=== PATIENT | male | born 1930 | race Two or more races ===

== ENCOUNTER 2017-02-07 16:09 | Inpatient (IN) | payer OTHER ==
[~2017-02-07] VITALS: Ht 185.4 cm; Wt 85.2 kg
[2017-02-07 17:45] LABS: Basophils # (auto) 0 uL; Basophils % (auto) 0.5 % (0.0-2.0); Eosinophils # (auto) 0 uL; Eosinophils % (auto) 0.8 % (0.0-7.0); Hematocrit 28.7 % (41.0-53.0); Hemoglobin 9.6 g/dL (13.5-17.5); Lymphocytes # (auto) 0.7 uL; Mean Corpuscular Hemoglobin 28.4 pg (28.0-32.0); Mean Corpuscular Hgb Conc. 33.3 g/dL (32.0-36.0); Mean Corpuscular Volume 85.5 fL (80.0-100.0); Mean Platelet Volume 8.9 fL (7.4-10.4); Monocytes # (auto) 0.7 uL; Monocytes % (auto) 11.3 % (0.0-12.0); Neutrophils # (auto) 4.6 uL; Neutrophils % (auto) 76.4 % (37.0-80.0); Platelet Count (auto) 239 10^3/uL (140-450); White Blood Cell 6.1 10^3/uL (4.4-10.8)
[2017-02-07] MEDS ORDERED: FUROSEMIDE 40 MG/4 ML VIAL IV ONE (18:00)
[2017-02-07 18:07] LABS: Albumin 3.3 g/dL (3.4-5.0); BUN/Creatinine Ratio 10.1; Bilirubin, Total 0.3 mg/dL (0.2-1.0); Calcium 8.4 mg/dL (8.5-10.1); Magnesium 2.1 mg/dL (1.6-2.6); Total Protein 8.1 g/dL (6.4-8.2)
[2017-02-07 18:53] LABS: B-Type Natriuretic Peptide 345.16 pg/mL (0-100); Temperature: 23.4 C (20.0-25.0)
[2017-02-07] MEDS ORDERED: LEVOFLOXACIN 500MG 100 ML IV ONE (19:30)
[2017-02-07] MEDS ORDERED: DEXTROSE (50%) 50ML SYRG IV PRN (19:30)
[2017-02-07] MEDS ORDERED: SODIUM CHLORIDE 0.9% 1,000 ML IV ONE (19:30)
[2017-02-07] MEDS ORDERED: SODIUM CHLORIDE 0.9% 1,000 ML IV SCH (20:15)
[2017-02-07 20:21] LABS: Lactic Acid w/Reflex 2.1 mmol/L (0.4-2.0)
[2017-02-07 20:29] LABS: REFLEX LACTIC ACID YES OR NO YES
[2017-02-07] MEDS: AZITHROMYCIN 250 MG TAB PO SCH (20:40)
[2017-02-07] MEDS: InsuLIN REG 1unit/0.01ml Soln (100units/ml) SC SCH (22:30)
[2017-02-07] MEDS: ACCU-CHEK COMFORT CURVE STRIP VI SCH (22:30)
[2017-02-07 22:40] VITALS: BP 124/71
[2017-02-07] MEDS ORDERED: METF-312 PO (23:09)
[2017-02-08 04:04] VITALS: BP 124/71
[2017-02-08 05:05] VITALS: BP 104/55
[2017-02-08] MEDS: IPRATROPIUM BROM 0.5 MG/2.5ML INH SOL NEB SCH ×4 (06:00→18:34)
[2017-02-08] MEDS: ALBUTEROL SULF 2.5 MG/0.5ML(0.5%) NEB SOLN NEB SCH ×4 (06:00→18:34)
[2017-02-08] MEDS: ACCU-CHEK COMFORT CURVE STRIP VI SCH ×3 (06:08→17:00)
[2017-02-08] MEDS: InsuLIN REG 1unit/0.01ml Soln (100units/ml) SC SCH ×3 (06:08→17:00)
[2017-02-08 06:37] LABS: BUN/Creatinine Ratio 11.9; Calcium 8.5 mg/dL (8.5-10.1); Potassium 3.8 mmol/L (3.5-5.1)
[2017-02-08 06:42] LABS: Hematocrit 29.7 % (41.0-53.0); Hemoglobin 9.7 g/dL (13.5-17.5); Mean Corpuscular Hemoglobin 28.3 pg (28.0-32.0); Mean Corpuscular Hgb Conc. 32.5 g/dL (32.0-36.0); Mean Corpuscular Volume 86.9 fL (80.0-100.0); Mean Platelet Volume 8.9 fL (7.4-10.4); Platelet Count (auto) 242 10^3/uL (140-450); White Blood Cell 5.5 10^3/uL (4.4-10.8)
[2017-02-08 06:43] LABS: Metamyelocytes % 0; Myelocytes % 0; Promyelocytes % 0; Reactive Lymphocytes 0
[2017-02-08 08:00] VITALS: BP 119/75
[2017-02-08 08:28] LABS: Burr Cells FEW; Large Platelets FEW; Ovalocytes FEW; Platelet Estimate Adequate
[2017-02-08] MEDS ORDERED: cefTRIAXone 1GM/50ML D5W 50 ML IV SCH (09:00)
[2017-02-08] MEDS ORDERED: FUROSEMIDE 40 MG/4 ML VIAL IV SCH (10:00)
[2017-02-08] MEDS ORDERED: POTASSIUM CHL 10 Meq TABLET PO SCH (10:00)
[2017-02-08] MEDS: AZITHROMYCIN 250 MG TAB PO SCH (10:56)
[2017-02-08 13:00] VITALS: BP 114/73
[2017-02-08 17:00] VITALS: BP 108/69
== END 2017-02-08 19:04 | disposition home or self-care (01) | DRG 291 ==
LOC: EDBD 16:09 → ER 16:21 → TELE 16:22 → TELE-WESTW 21:37 → WEST WING 22:22
PROVIDERS: ADMIT Internal Medicine; ATTEND Internal Medicine
DX: I13.0 Hypertensive heart and chronic kidney disease with heart failure and stage 1 through stage 4 chronic kidney disease, or unspecified chronic kidney disease (principal); J96.00 Acute respiratory failure, unspecified whether with hypoxia or hypercapnia; I50.43 Acute on chronic combined systolic (congestive) and diastolic (congestive) heart failure; J18.9 Pneumonia, unspecified organism; J44.0 Chronic obstructive pulmonary disease with (acute) lower respiratory infection; D64.9 Anemia, unspecified; E11.22 Type 2 diabetes mellitus with diabetic chronic kidney disease; N18.3 Chronic kidney disease, stage 3 (moderate); R91.8 Other nonspecific abnormal finding of lung field; E78.5 Hyperlipidemia, unspecified; Z87.891 Personal history of nicotine dependence
CPT/HCPCS: 36415; 36600; 71010; 71020; 71250; 80048; 80053; 82805; 82962; 83036; 83605; 83735; 83880; 84484; 85007; 85025; 85027; 87040; 93005; 93306; 94640; 94761; 96365; 96375; J0696; J1815; J1956

== ENCOUNTER 2017-05-23 15:00 | Inpatient (IN) | payer OTHER ==
[~2017-05-23] VITALS: Ht 180.3 cm; Wt 79.4 kg
[~2017-05-23 15:00] MED LIST: METF-370 PO
[2017-05-23 16:48] LABS: Basophils # (auto) 0 uL; Basophils % (auto) 0.8 % (0.0-2.0); CONDITION Y; DEFINITIVE SEE PRINTOUT; Eosinophils # (auto) 0.1 uL; Eosinophils % (auto) 0.9 % (0.0-7.0); Hematocrit 30.2 % (41.0-53.0); Lymphocytes % (auto) 17.7 % (10.0-50.0); Mean Corpuscular Hemoglobin 27.5 pg (28.0-32.0); Mean Corpuscular Hgb Conc. 32.9 g/dL (32.0-36.0); Mean Corpuscular Volume 83.5 fL (80.0-100.0); Mean Platelet Volume 8.7 fL (7.4-10.4); Monocytes # (auto) 0.4 uL; Monocytes % (auto) 7.5 % (0.0-12.0); Neutrophils # (auto) 3.9 uL; Neutrophils % (auto) 73.1 % (37.0-80.0); Platelet Count (auto) 320 10^3/uL (140-450); Red Cell Distribution Width 19.8 % (11.6-16.0); White Blood Cell 5.4 10^3/uL (4.4-10.8)
[2017-05-23 17:10] LABS: BUN/Creatinine Ratio 9.7; Calcium 8.5 mg/dL (8.5-10.1); Magnesium 1.9 mg/dL (1.6-2.6); Potassium 3.9 mmol/L (3.5-5.1)
[2017-05-23 17:28] LABS: Bilirubin, Total 0.3 mg/dL (0.2-1.0); Total Protein 8.1 g/dL (6.4-8.2)
[2017-05-23] MEDS ORDERED: IOHEXOL 350 MG/ML 100ML IJ ONE (21:39)
[2017-05-23 22:16] LABS: B-Type Natriuretic Peptide 258.97 pg/mL (0-100)
[2017-05-23 22:29] LABS: INR 1.06 (0.9-1.15); Prothrombin Time 11.6 sec (9.37-12.3)
[2017-05-23 22:30] LABS: Temperature: 23.3 C (20.0-25.0)
[2017-05-24] MEDS ORDERED: LEVOFLOXACIN 750MG 150 ML IV ONE (01:00)
[2017-05-24] MEDS ORDERED: ACETAMINOPHEN 325 MG TAB PO PRN (02:00)
[2017-05-24] MEDS ORDERED: ONDANSETRON HCL 4 MG/2 ML VIAL IV PRN (02:00)
[2017-05-24 02:14] LABS: Urine RBC None Seen /hpf (0 - 3)
[2017-05-24 02:28] LABS: Urine Bilirubin Negative (Negative); Urine Blood Negative /uL (Negative); Urine Color Yellow (Yellow); Urine Glucose Normal (Normal); Urine Ketone Negative (Negative); Urine Nitrite POSITIVE (Negative); Urine Squamous Epithelial Cell FEW /hpf (<5); Urine Urobilinogen Normal (Negative); Urine pH 6.5 (5.0-8.0)
[2017-05-24] MEDS ORDERED: IPRATROPIUM BROM 0.5 MG/2.5ML INH SOL NEB PRN (03:15)
[2017-05-24] MEDS ORDERED: ALBUTEROL SULF 2.5 MG/0.5ML(0.5%) NEB SOLN NEB PRN (03:15)
[2017-05-24 08:36] VITALS: BP 135/77
[2017-05-24 09:07] VITALS: BP 139/70
[2017-05-24] MEDS: FAMOTIDINE 20 MG TAB PO SCH ×2 (10:00→21:35)
[2017-05-24] MEDS: FUROSEMIDE 40 MG TAB PO SCH (10:57)
[2017-05-24] MEDS: ENOXAPARIN SOD 40 MG/0.4 ML SYRINGE SC SCH (10:58)
[2017-05-24] MEDS: HYDROcodone-ACET 5/325MG TAB PO PRN (10:58)
[2017-05-24 12:00] VITALS: BP 129/76
[2017-05-24] MEDS ORDERED: VANCOMYCIN PER PHARMACY 0 MG IV SCH (14:00)
[2017-05-24] MEDS: VANCOMYCIN 1GM/250ML D5W 250 ML IV SCH (15:00)
[2017-05-24 17:24] VITALS: BP 134/72
[2017-05-24] MEDS: BOOST PLUS 8 ounce PO SCH ×2 (18:23→21:34)
[2017-05-24 20:00] VITALS: BP 113/63
[2017-05-24 21:45] VITALS: BP 113/63
[2017-05-25] VITALS (7 sets, daily range): BP systolic 99–140; BP diastolic 49–66
[2017-05-25] MEDS: LEVOFLOXACIN 750MG 150 ML IV SCH (01:41)
[2017-05-25] MEDS: BOOST PLUS 8 ounce PO SCH ×4 (06:22→22:02)
[2017-05-25 07:03] LABS: Basophils # (auto) 0 uL; Basophils % (auto) 0.6 % (0.0-2.0); CONDITION Y; DEFINITIVE SEE PRINTOUT; Eosinophils # (auto) 0.1 uL; Eosinophils % (auto) 0.8 % (0.0-7.0); Hematocrit 33.2 % (41.0-53.0); Lymphocytes # (auto) 1.1 uL; Mean Corpuscular Hemoglobin 27.6 pg (28.0-32.0); Mean Corpuscular Volume 83.4 fL (80.0-100.0); Mean Platelet Volume 8.8 fL (7.4-10.4); Monocytes % (auto) 14.5 % (0.0-12.0); Neutrophils # (auto) 4.9 uL; Neutrophils % (auto) 69.1 % (37.0-80.0); Platelet Count (auto) 302 10^3/uL (140-450); White Blood Cell 7.1 10^3/uL (4.4-10.8)
[2017-05-25 07:10] LABS: Red Cell Distribution Width 20.2 % (11.6-16.0)
[2017-05-25 07:23] LABS: Albumin 2.9 g/dL (3.4-5.0); BUN/Creatinine Ratio 12.8; Potassium 4.1 mmol/L (3.5-5.1)
[2017-05-25 07:25] LABS: Bilirubin, Total 0.3 mg/dL (0.2-1.0); Total Protein 8.1 g/dL (6.4-8.2)
[2017-05-25 08:51] LABS: Anisocytosis Slight; Large Platelets FEW; Platelet Estimate Adequate; Poikilocytosis Slight; Schistocytes FEW
[2017-05-25] MEDS: ENOXAPARIN SOD 40 MG/0.4 ML SYRINGE SC SCH (10:09)
[2017-05-25] MEDS: VANCOMYCIN 1GM/250ML D5W 250 ML IV SCH (10:09)
[2017-05-25] MEDS: FUROSEMIDE 40 MG TAB PO SCH (10:10)
[2017-05-25] MEDS: FAMOTIDINE 20 MG TAB PO SCH ×2 (10:10→21:49)
[2017-05-25] MEDS: HYDROcodone-ACET 5/325MG TAB PO PRN (19:16)
[2017-05-26] MEDS: LEVOFLOXACIN 750MG 150 ML IV SCH (00:39)
[2017-05-26] MEDS: VANCOMYCIN 1GM/250ML D5W 250 ML IV SCH ×2 (03:51→22:07)
[2017-05-26 04:34] VITALS: BP 98/61
[2017-05-26] MEDS: BOOST PLUS 8 ounce PO SCH ×4 (06:00→22:07)
[2017-05-26 08:00] VITALS: BP 100/55
[2017-05-26] MEDS: FAMOTIDINE 20 MG TAB PO SCH ×3 (10:22→22:07)
[2017-05-26] MEDS: ENOXAPARIN SOD 40 MG/0.4 ML SYRINGE SC SCH (10:27)
[2017-05-26] MEDS: FUROSEMIDE 40 MG TAB PO SCH (10:28)
[2017-05-26 12:00] VITALS: BP 97/54
[2017-05-26 16:00] VITALS: BP 113/65
[2017-05-26 21:58] VITALS: BP 119/64
[2017-05-27] MEDS: LEVOFLOXACIN 750MG 150 ML IV SCH (03:49)
[2017-05-27 04:50] VITALS: BP 119/58
[2017-05-27] MEDS: BOOST PLUS 8 ounce PO SCH (05:26)
[2017-05-27 07:10] LABS: CONDITION Y; DEFINITIVE SEE PRINTOUT; Hematocrit 31.4 % (41.0-53.0); Hemoglobin 10.4 g/dL (13.5-17.5); Mean Corpuscular Hemoglobin 27.6 pg (28.0-32.0); Mean Corpuscular Hgb Conc. 33.2 g/dL (32.0-36.0); Mean Corpuscular Volume 83.2 fL (80.0-100.0); Mean Platelet Volume 8.9 fL (7.4-10.4); Platelet Count (auto) 271 10^3/uL (140-450); White Blood Cell 9.5 10^3/uL (4.4-10.8)
[2017-05-27 07:21] LABS: Red Cell Distribution Width 20.3 % (11.6-16.0)
[2017-05-27 07:22] LABS: Metamyelocytes % 0; Myelocytes % 0; Promyelocytes % 0; Reactive Lymphocytes 0
[2017-05-27 07:39] LABS: BUN/Creatinine Ratio 17.8; Calcium 8.8 mg/dL (8.5-10.1); Potassium 4.1 mmol/L (3.5-5.1)
[2017-05-27 08:17] LABS: Platelet Estimate Adequate
[2017-05-27 08:18] LABS: Anisocytosis Slight; Large Platelets FEW; Ovalocytes FEW
[2017-05-27 08:19] LABS: Schistocytes FEW
[2017-05-27 09:00] VITALS: BP 118/59
[2017-05-27] MEDS: FUROSEMIDE 40 MG TAB PO SCH (10:29)
[2017-05-27] MEDS: FAMOTIDINE 20 MG TAB PO SCH (10:29)
[2017-05-27] MEDS: ENOXAPARIN SOD 40 MG/0.4 ML SYRINGE SC SCH (10:30)
[2017-05-27 12:17] VITALS: BP 96/41
[2017-05-27 13:00] VITALS: BP 96/41
== END 2017-05-27 12:53 | disposition hospice, home (50) | DRG 204 ==
LOC: ER 15:10 → OVERFLOW 15:11 → EAST 05-24 09:19 → CENTRAL 05-24 10:24
PROVIDERS: ADMIT Nurse Practitioner; ATTEND Internal Medicine Pulmonary Disease
DX: R91.8 Other nonspecific abnormal finding of lung field (principal); J18.9 Pneumonia, unspecified organism; J96.10 Chronic respiratory failure, unspecified whether with hypoxia or hypercapnia; I31.3 Pericardial effusion (noninflammatory); J90 Pleural effusion, not elsewhere classified; J44.0 Chronic obstructive pulmonary disease with (acute) lower respiratory infection; I42.9 Cardiomyopathy, unspecified; N39.0 Urinary tract infection, site not specified; E11.9 Type 2 diabetes mellitus without complications; I10 Essential (primary) hypertension; E78.5 Hyperlipidemia, unspecified; J44.9 Chronic obstructive pulmonary disease, unspecified; I70.0 Atherosclerosis of aorta; Z87.891 Personal history of nicotine dependence
CPT/HCPCS: 36415; 71010; 71260; 80048; 80053; 80202; 81001; 83735; 83880; 84484; 85007; 85025; 85027; 85379; 85610; 87040; 87086; 93005; 94640; 96365; J1956